=== PATIENT | male | born 2000 | race Caucasian/White ===

== ENCOUNTER 2019-03-28 20:34 | Emergency (ER) | payer OTHER ==
[2019-03-28 21:09] LABS: BILIRUBIN,URINE NEGATIVE (NEGATIVE); CLARITY,URINE CLEAR (CLEAR); GLUCOSE, URINE (UA) NEGATIVE (NEGATIVE); KETONES,URINE (UA) NEGATIVE (NEGATIVE); LEUKOCYTE ESTERASE, URINE NEGATIVE (NEGATIVE); NITRITE,URINE NEGATIVE (NEGATIVE); OCCULT BLOOD,URINE LARGE (NEGATIVE); PH,URINE 5.5 PH (5.0-7.5); PROTEIN,URINE TRACE mg/dL (NEGATIVE); UROBILINOGEN,URINE 1 (NORMAL) E.U./dL (NORMAL)
[2019-03-28 21:17] LABS: BACTERIA,URINE None Seen /HPF (None Seen); MUCUS,URINE Few Strands; SQUAMOUS EPITHELIAL CELL,UR RARE Squamous (<= Few)
--- NOTE | 2019-03-28 22:12 | ED Physician Documentation ---
PD HPI TRUNK INJURY - Stated complaint Stated Complaint: ABD INJURY - Chief complaint Chief Complaint: Trauma Abd - History obtained from History obtained from: Patient PD PAST MEDICAL HISTORY - Past Medical History Psych: Depression - Past Surgical History Past Surgical History: No - Present Medications Home Medications: Ambulatory Orders Medication Instructions Recorded Confirmed No Known Home Medications 03/28/19 03/28/19 - Allergies Allergies/Adverse Reactions: Allergies Allergy/AdvReac Type Severity Reaction Status Date / Time No Known Drug Allergies Allergy Verified 03/28/19 20:52 - Social History Does the pt smoke?: No Smoking Status: Never smoker Does the pt drink ETOH?: No Does the pt have substance abuse?: No - Immunizations Immunizations are current?: Yes - POLST Patient has POLST: No Results - Vitals Vitals: Vital Signs - 24 hr 03/28/19 20:40 Temperature 37.0 C Heart Rate 71 Respiratory 18 Rate Blood Pressure 150/67 H O2 Saturation 97 Oxygen O2 Source Room air - Labs Labs: Laboratory Tests 03/28/19 20:55 Urine Color YELLOW Urine Clarity CLEAR Urine pH 5.5 Ur Specific [place] 1.025 Urine Protein TRACE Urine Glucose (UA) NEGATIVE Urine Ketones NEGATIVE Urine Occult Blood LARGE H Urine Nitrite NEGATIVE Urine Bilirubin NEGATIVE Urine Urobilinogen 1 (NORMAL) Ur Leukocyte Esterase NEGATIVE Urine RBC 11-25 H Urine WBC 0-3 Ur Squamous Epith Cells RARE Squamous Urine Bacteria None Seen Urine Mucus Few Strands Ur Microscopic Review INDICATED Urine Culture Comments NOT INDICATED
[2019-03-28 22:16] LABS: BASOPHILS % (AUTO) 0.4 %; EOSINOPHILS # (AUTO) 0.1 10^3/uL (0.0-0.7); EOSINOPHILS % (AUTO) 1.1 %; HGB - HEMOGLOBIN 16.2 g/dL (14.0-18.0); LYMPHOCYTES # (AUTO) 2.5 10^3/uL (1.5-3.5); LYMPHOCYTES % (AUTO) 25.2 %; MEAN CORPUSCULAR HEMOGLOBIN 30.6 pg (27.0-31.0); MONOCYTES # (AUTO) 0.8 10^3/uL (0.0-1.0); MONOCYTES % (AUTO) 8.4 %; NEUTROPHILS # (AUTO) 6.4 10^3/uL (1.5-6.6); NEUTROPHILS % (AUTO) 64.5 %; PLT - PLATELET COUNT 299 10^3/uL (130-450); RED BLOOD COUNT 5.29 10^6/uL (4.70-6.10); RED CELL DISTRIBUTION WIDTH 11.9 % (12.0-15.0); WHITE BLOOD COUNT 9.9 x10^3/uL (4.8-10.8)
--- NOTE | 2019-03-28 22:20 | ED Physician Documentation ---
PD HPI ABD PAIN - Stated complaint Stated Complaint: ABD INJURY - Chief complaint Chief Complaint: Trauma Abd - History obtained from History obtained from: Patient - History of Present Illness Timing - onset: How many hours ago (1.5) Timing - duration: Hours (1.5) Timing - details: Abrupt onset Pain level now: 8 Quality: Sharp Location: RLQ, Other (R testicle) Associated symptoms: Nausea. No: Fever, Vomiting Similar symptoms before: Has not had sx before Recently seen: Not recently seen - Additional information Additional information: This is a 19-year-old who was riding a skateboard tonight it came off box that had been waxed and his left foot landed on the tip of it kicking it up and he landed on the tail into his right groin and testicle region region. This happened about an hour and a half prior to presentation he thinks he may now have a hernia because the scrotum is all swollen. He is rating the pain an 8 out of 10 and even though the injury really was the right side is hurting on the left side as well. He did noted a mild laceration on the back of the testicle and there was a little bit of blood but he is cleaned it up. He has not taken any medications for the pain. He felt very nauseous but no vomiting. He is having "sharp" abdominal pain. He has urinated and has not seen blood since the incident. Denies abdominal surgeries. The patient had a ORIF of his left wrist fracture about 4 years ago and still wears a splint from that incident. Review of Systems Unable to obtain: Other (Acute pain) GI: reports: Abdominal Pain, Nausea. denies: Vomiting : reports: Testicular pain, Testicular mass. denies: Dysuria, Hematuria Skin: reports: Abrasion (s) PD PAST MEDICAL HISTORY - Past Medical History Psych: Depression - Past Surgical History Past Surgical History: No - Present Medications Home Medications: Ambulatory Orders Medication Instructions Recorded Confirmed No Known Home Medications 03/28/19 03/28/19 - Allergies Allergies/Adverse Reactions: Allergies Allergy/AdvReac Type Severity Reaction Status Date / Time No Known Drug Allergies Allergy Verified 03/28/19 20:52 - Social History Does the pt smoke?: No Smoking Status: Never smoker Does the pt drink ETOH?: No Does the pt have substance abuse?: No - Immunizations Immunizations are current?: Yes - POLST Patient has POLST: No PD ED PE NORMAL - Vitals Vital signs reviewed: Yes - General General: Alert and oriented X 3, Well developed/nourished, Other (He looks uncomfortable.) - Cardiac Cardiac: RRR, No murmur - Respiratory Respiratory: No respiratory distress - Abdomen Abdomen: Normal bowel sounds, Soft, Non tender - Male Male : Quilt Sewer present (Mom was present in the room), Other (The right testicle is swollen and exquisitely tender. Swelling up into the inguinal canal as well and its tender. There is a mild superficial laceration/abrasion on the inner aspect of the right upper thigh. I do not note any laceration to the scrotum itself.) - Derm Derm: Normal color, Warm and dry - Neuro Neuro: Alert and oriented X 3, Other Results - Vitals Vitals: Vital Signs - 24 hr 03/28/19 03/28/19 20:40 22:52 Temperature 37.0 C 36.7 C Heart Rate 71 69 Respiratory 18 16 Rate Blood Pressure 150/67 H 143/89 H O2 Saturation 97 98 Oxygen O2 Source Room air - Labs Labs: Laboratory Tests 03/28/19 03/28/19 03/28/19 20:55 22:10 22:10 WBC 9.9 RBC 5.29 Hgb 16.2 Hct 47.6 MCV 90.0 MCH 30.6 MCHC 34.0 RDW 11.9 L Plt Count 299 MPV 9.0 Neut # (Auto) 6.4 Lymph # (Auto) 2.5 [place] # (Auto) 0.8 Eos # (Auto) 0.1 Baso # (Auto) 0.0 Absolute Nucleated RBC 0.00 Nucleated RBC % 0.0 Sodium 142 Potassium 3.7 Chloride 99 L Carbon Dioxide 29 Anion Gap 14.0 H BUN 13 Creatinine 0.8 Estimated GFR (MDRD) 123 Glucose 85 Calcium 10.1 Total Bilirubin 0.8 AST 31 ALT 24 Alkaline Phosphatase 69 Total Protein 8.2 Albumin 5.1 Globulin 3.1 Albumin/Globulin Ratio 1.6 Lipase 30 Urine Color YELLOW Urine Clarity CLEAR Urine pH 5.5 Ur Specific [place] 1.025 Urine Protein TRACE Urine Glucose (UA) NEGATIVE Urine Ketones NEGATIVE Urine Occult Blood LARGE H Urine Nitrite NEGATIVE Urine Bilirubin NEGATIVE Urine Urobilinogen 1 (NORMAL) Ur Leukocyte Esterase NEGATIVE Urine RBC 11-25 H Urine WBC 0-3 Ur Squamous Epith Cells RARE Squamous Urine Bacteria None Seen Urine Mucus Few Strands Ur Microscopic Review INDICATED Urine Culture Comments NOT INDICATED PD MEDICAL DECISION MAKING - ED course Complexity details: d/w patient, d/w family ED course: Patient's white blood cell count is normal. His urine has 11-20 red blood cells per high-power field. Ultrasound is been ordered but is still pending at the time of this dictation. The patient was given a total of 2 mg of Dilaudid and 4 Zofran IV. Care will be turned over to Dr. Avila to follow-up on the ultrasound.
[2019-03-28] MEDS ORDERED: ONDANSETRON 4 MG/2 ML VIAL IVP STA (22:23)
[2019-03-28] MEDS ORDERED: HYDROmorphone 1 MG/ML CARPUJECT IVP STA ×2 (22:23→23:42)
[2019-03-28 22:28] LABS: ALBUMIN 5.1 g/dL (3.2-5.5); ALBUMIN/GLOBULIN RATIO 1.6 (1.0-2.2); BILIRUBIN,TOTAL 0.8 mg/dL (0.2-1.0); CALCIUM 10.1 mg/dL (8.5-10.3); CREATININE 0.8 mg/dL (0.6-1.2); TOTAL PROTEIN 8.2 g/dL (6.7-8.2)
--- NOTE | 2019-03-29 01:12 | Ultrasound Report ---
Reason: Trauma; swelling and pain Procedure Date: 03/29/2019 Accession Number: [id number] / [id number] Procedure: US - Testicle w/Doppler CPT Code: FULL RESULT: EXAM: SCROTAL ULTRASOUND EXAM DATE: 03/29/2019 12:56 AM. CLINICAL HISTORY: Trauma; swelling and pain. COMPARISON: None. TECHNIQUE: Real-time scanning was performed with static images obtained. Color-flow images were utilized. FINDINGS: Right: Testis: 4.9 x 3.4 x 2.5 cm. Normal size and echotexture. No mass, calcification, or abnormal blood flow. Epididymis: 1.1 x 0.6 x 0.4 cm. Normal size and echotexture. No mass or abnormal blood flow. Hydrocele: None. Varicocele: None. Right inguinal hernia, which appears to contain bowel. Left: Testis: 4.6 x 2.7 x 2.2 cm. Normal size and echotexture. No mass, calcification, or abnormal blood flow. Epididymis: 0.8 x 0.7 x 0.5 cm. Normal size and echotexture. No mass or abnormal blood flow. Hydrocele: None. Varicocele: Yes IMPRESSION: Right inguinal hernia, which appears to contain bowel. Left varicocele. Normal testes. RADIA
[2019-03-29] MEDS ORDERED: HYDROmorphone 1 MG/ML CARPUJECT IVP STA (01:13)
[2019-03-29] MEDS ORDERED: KETOROLAC 30 MG/ML VIAL IVP STA (01:13)
[2019-03-29] MEDS ORDERED: oxyCODONE/ACET 5/325 Prepack 4 PO STA (01:28)
[2019-03-29] MEDS ORDERED: ONDANSETRON ODT 4 MG Prepack 2 TL PRN (01:28)
--- NOTE | 2019-03-29 01:44 | ED Physician Documentation ---
ED Addendum - Addendum Addendum: 03/29/19 01:42 The patient is return from ultrasound with the report showing an acute hernia. He states there may been a small lump feeling in the inguinal area previously. He did not have any pains. After the injury tonight he has swelling in pain in the right scrotum. The ultrasound shows a normal testicle with good blood flow. There is an acute hernia in the area. Physical exam on return from ultrasound shows a tenderness in the right scrotum area and a fullness. The hernia sac is soft and easily reducible. We will have him off with pain medicine and anti-inflammatories. Encouraged to use scrotal support. We will have him contact surgery tomorrow for an appointment for acute reevaluation. Given the size and this of the hernia, I would assume outpatient repair would be appropriate.
[2019-03-29 02:12] VITALS: BP 140/80
== END 2019-03-29 02:18 | disposition home or self-care (01) ==
LOC: ED 20:34
DX: K40.90 Unilateral inguinal hernia, without obstruction or gangrene, not specified as recurrent (principal); S71.111A Laceration without foreign body, right thigh, initial encounter; N50.82 Scrotal pain; N50.89 Other specified disorders of the male genital organs; V00.131A Fall from skateboard, initial encounter; W20.8XXA Other cause of strike by thrown, projected or falling object, initial encounter; Y93.51 Activity, roller skating (inline) and skateboarding
CPT/HCPCS: 36415; 76870; 80053; 81001; 81003; 83690; 85025; 87086; 93975; 96374; 96375; 96376; 99284

== ENCOUNTER 2019-03-29 15:12 | Emergency (ER) | payer OTHER ==
--- NOTE | 2019-03-29 17:58 | ED Physician Documentation ---
PD HPI ABD PAIN - Stated complaint Stated Complaint: ABD INJURY - Chief complaint Chief Complaint: Abd Pain - History obtained from History obtained from: Patient - History of Present Illness Timing - onset: Yesterday Timing - duration: Days (1) Timing - details: Abrupt onset, Still present Similar symptoms before: Diagnosis (This is a 19-year-old who I saw in the emergency department last night after he injured his right groin region. I was concerned that he had a testicular rupture but the ultrasound was followed up by Dr. Avila showed no testicular issue and there was good flow but he had an inguinal hernia. It was not found to be incarcerated last night. Patient was discharged with instructions to follow-up with the surgeon today however when they called the office they need a referral because he is . [place]. Patient has been taking Percocet at home but is "not touching" the pain. His last dose was approximately 3 hours prior to presentation. He has not urinated today and says that he has not been drinking today. He has not eaten because of the pain and they were concerned if he was good to have surgery that he needed to be n.p.o. He has not had a fever. He has had no vomiting.) Recently seen: Emergency Dept Review of Systems Constitutional: denies: Fever GI: reports: Abdominal Pain, Nausea. denies: Vomiting : reports: Other (Patient has not urinated today. There is a large swelling in the right scrotum.). denies: Dysuria, Hematuria Skin: denies: Rash PD PAST MEDICAL HISTORY - Past Medical History GI: Hiatal hernia Psych: Depression - Past Surgical History Past Surgical History: No - Present Medications Home Medications: Ambulatory Orders Medication Instructions Recorded Confirmed Ibuprofen [Motrin] 800 mg PO Q8H PRN #30 tablet 03/29/19 Ondansetron Odt [Zofran] 4 mg TL Q6H PRN #10 tablet 03/29/19 Oxycodone HCl/Acetaminophen 1 each PO Q6H PRN #14 tablet 03/29/19 [Percocet 5-325 mg Tablet] RX: Naproxen 500 mg PO BID #20 tablet 03/29/19 - Allergies Allergies/Adverse Reactions: Allergies Allergy/AdvReac Type Severity Reaction Status Date / Time No Known Drug Allergies Allergy Verified 03/29/19 15:22 - Social History Does the pt smoke?: No Smoking Status: Never smoker Does the pt drink ETOH?: No Does the pt have substance abuse?: No - Immunizations Immunizations are current?: Yes - POLST Patient has POLST: No PD ED PE NORMAL - Vitals Vital signs reviewed: Yes - General General: Alert and oriented X 3, No acute distress, Well developed/nourished, Other (He sitting with the pain expression on his face.) - HEENT HEENT: Atraumatic, PERRL, Moist mucous membranes - Cardiac Cardiac: RRR, No murmur - Respiratory Respiratory: No respiratory distress, Clear bilaterally - Abdomen Abdomen: Normal bowel sounds, Soft, Non tender, Non distended - Male Male : Other (There is a large inguinal hernia but it is easily reducible. The testicle does not appear swollen or painful.) - Derm Derm: Normal color, Warm and dry, No rash - Neuro Neuro: Other (No gross neurological deficits.) Results - Vitals Vitals: Oxygen O2 Source Room air - Labs Labs: Laboratory Tests 03/29/19 18:43 WBC 5.5 RBC 5.03 Hgb 15.4 Hct 45.6 MCV 90.7 MCH 30.6 MCHC 33.8 RDW 12.0 Plt Count 256 MPV 9.0 Neut # (Auto) 2.9 Lymph # (Auto) 1.8 [place] # (Auto) 0.5 Eos # (Auto) 0.1 Baso # (Auto) 0.1 Absolute Nucleated RBC 0.00 Nucleated RBC % 0.0 PD MEDICAL DECISION MAKING - ED course Complexity details: reviewed results, re-evaluated patient, d/w patient, d/w media consultant ED course: Patient had a normal white blood cell count. He was given a milligram of Dilaudid IV did not really help much with the pain after I had the clearance from the surgeon he was given Toradol 30 mg IV. I did discuss case with Dr. Rahman At the family's request to make sure that she would not do surgery tonight. She felt that the risks to the testicle was too high to perform any type of hernia repair at this time given the swelling and bruising of the tissues that would be present. This was discussed with the family. He is to use an anti- inflammatory first for the pain the Toradol seemed to help a little bit after he received it. I recommended icing and wearing supportive briefs. He will have to work on securing a repeat referral for outpatient surgical evaluation from [facility]. Return if he is vomiting becomes incarcerated and he cannot reduce it. Departure - Departure Disposition: 01 Home, Self Care Clinical Impression: Hernia, inguinal, right Condition: Good Instructions: ED Hernia Inguinal Follow-Up: [facility] [Provider Group] Prescriptions: Ibuprofen [Motrin] 800 mg PO Q8H PRN #30 tablet PRN Reason: PAIN &/OR FEVER Comments: Take the Motrin 3 times a day with food. You can use the oxycodone if you need to for additional pain. Wear tighty whiteys and ice can help with the pain as well. Follow-up with [facility] about a referral for outpatient management with the surgeon. Return if the hernia is out and you cannot reduce it or you are vomiting. Discharge Date/Time: 03/29/19 20:17
[2019-03-29] MEDS ORDERED: SODIUM CHLORIDE 0.9% 1,000 ML IV ONE (17:59)
[2019-03-29] MEDS ORDERED: HYDROmorphone 1 MG/ML CARPUJECT IVP STA (17:59)
[2019-03-29] MEDS ORDERED: ONDANSETRON 4 MG/2 ML VIAL IVP STA (17:59)
[2019-03-29 18:48] LABS: BASOPHILS # (AUTO) 0.1 10^3/uL (0.0-0.1); BASOPHILS % (AUTO) 0.9 %; EOSINOPHILS # (AUTO) 0.1 10^3/uL (0.0-0.7); EOSINOPHILS % (AUTO) 2.2 %; HGB - HEMOGLOBIN 15.4 g/dL (14.0-18.0); LYMPHOCYTES # (AUTO) 1.8 10^3/uL (1.5-3.5); LYMPHOCYTES % (AUTO) 32.8 %; MEAN CORPUSCULAR HEMOGLOBIN 30.6 pg (27.0-31.0); MEAN CORPUSCULAR HGB CONC 33.8 g/dL (32.0-36.0); MEAN CORPUSCULAR VOLUME 90.7 fL (80.0-94.0); MONOCYTES # (AUTO) 0.5 10^3/uL (0.0-1.0); MONOCYTES % (AUTO) 9.7 %; NEUTROPHILS # (AUTO) 2.9 10^3/uL (1.5-6.6); PLT - PLATELET COUNT 256 10^3/uL (130-450); RED BLOOD COUNT 5.03 10^6/uL (4.70-6.10); WHITE BLOOD COUNT 5.5 x10^3/uL (4.8-10.8)
[2019-03-29 19:27] VITALS: BP 132/74
[2019-03-29] MEDS ORDERED: KETOROLAC 30 MG/ML VIAL IVP STA (19:30)
== END 2019-03-29 20:17 | disposition home or self-care (01) ==
LOC: ED 15:12
DX: K40.90 Unilateral inguinal hernia, without obstruction or gangrene, not specified as recurrent (principal); S71.111A Laceration without foreign body, right thigh, initial encounter; N50.82 Scrotal pain; N50.89 Other specified disorders of the male genital organs; V00.131A Fall from skateboard, initial encounter; W20.8XXA Other cause of strike by thrown, projected or falling object, initial encounter; Y93.51 Activity, roller skating (inline) and skateboarding
CPT/HCPCS: 36415; 76870; 80053; 81001; 83690; 85025; 93975; 96374; 96375; 99283; 99284; J1170